=== PATIENT | male | born 1975 | race African-American/Black ===

== ENCOUNTER 2017-09-01 14:53 | Emergency (ER) | payer OTHER ==
[~2017-09-01] VITALS: Ht 180.3 cm; Wt 90.7 kg
[~2017-09-01 14:53] MED LIST: BACTRIM DS TAB1 EACH PO; CIPRO500 M1 PO; CIPRO500 MG PO; CITRATE OF MAG296 ML PO; COLACE100 MG PO; DOXYCYCLINE 10100 M1 PO; DOXYCYCLINE 10100 MG PO; FLAGYL500 MG PO; FLEXERIL PO; GENTAMICIN SU3 MG/ML OPHTHALMIC; HYDROCODONE-AP1 EAC6 PO; HYDROCODONE-APA1 TA1 PO; IMITREX 25 MG T25 M1 PO; IMITREX 50 MG T50 MG PO; LEXAPRO 10 MG T10 M1 PO; MIRALAX17 GM PO; NORCO 5-325 TA1 EACH PO; PEPCID20 MG PO; PREDNISONE 20 M20 M1 PO; SUMATRIPTAN SUC50 MG PO; TRIAMCINOLONE A80 G2 TOP; WELLBUTRIN XL150 MG; ZOFRAN4 MG PO; ZPAK PO
[2017-09-01] MEDS ORDERED: PREDNISONE 20 M20 MG PO (16:17)
[2017-09-01 16:27] VITALS: BP 134/77
== END 2017-09-01 16:28 | disposition home or self-care (01) ==
LOC: M.ERS 14:53
DX: T78.40XA Allergy, unspecified, initial encounter (principal); Z91.041 Radiographic dye allergy status; Z88.5 Allergy status to narcotic agent; Z88.2 Allergy status to sulfonamides; Z90.49 Acquired absence of other specified parts of digestive tract; Y92.89 Other specified places as the place of occurrence of the external cause

== ENCOUNTER 2018-11-29 14:47 | Inpatient (IN) | payer OTHER ==
[~2018-11-29] VITALS: Ht 180.3 cm; Wt 113.4 kg
[~2018-11-29 14:47] MED LIST changes: +PREDNISONE 20 M20 MG PO
[2018-11-29 14:52] VITALS: BP 129/78
[2018-11-29] MEDS ORDERED: XANAX 0.5 MG0.5 MG PO (15:00)
[2018-11-29] MEDS ORDERED: LEXAPRO 10 MG T10 M2 PO (15:01)
[2018-11-29] MEDS ORDERED: ZOFRAN ODT4 MG PO (15:01)
[2018-11-29] MEDS ORDERED: APPLE CIDER VI300 MG PO (15:01)
[2018-11-29] MEDS ORDERED: OMEPRAZOLE40 MG PO (15:02)
[2018-11-29 15:55] LABS: ABSOLUTE BASOPHILS 0.1 thou/uL (0.0-0.2); ABSOLUTE EOSINOPHILS 0.2 thou/uL (0.0-0.7); ABSOLUTE LYMPHOCYTES 1.2 thou/uL (0.8-5.3); ABSOLUTE MONOCYTES 1.1 thou/uL (0.0-1.2); ABSOLUTE NEUTROPHILS 9.5 thou/uL (1.6-8.1); BASOPHILS 0.6 %; EOSINOPHILS 1.5 %; HEMATOCRIT 38.7 % (42.0-52.0); HEMOGLOBIN 13.1 gm/dL (14.0-18.0); LYMPHOCYTES 9.9 %; MCH 32.5 pg (26.0-34.0); MCHC 33.9 g/dL (28.0-37.0); MCV 95.9 fL (80.0-100.0); MONOCYTES 9.1 %; MPV 8.4 fl. (7.2-11.1); NUCLEATED RBCS 0 /100WBC; PLATELET COUNT* 331 thou/uL (150-400); POLYS 78.9 %; RBC 4.03 mil/uL (4.50-6.00); RDW-CV 13.2 % (10.5-14.5)
[2018-11-29 16:04] LABS: APTT 27.3 Seconds (25.0-31.3); PROTIME 10.3 Seconds (9.20-11.50)
[2018-11-29 16:07] LABS: CALCIUM 8.5 mg/dL (8.5-10.1); CREATININE 1.2 mg/dL (0.6-1.3); POTASSIUM 3.7 mmol/L (3.5-5.1)
[2018-11-29 16:12] LABS: ALBUMIN 3.4 g/dL (3.4-5.0); TOTAL BILIRUBIN 0.4 mg/dL (<0.1-1.0)
[2018-11-29 17:03] LABS: URINE BILIRUBIN NEGATIVE (Negative); URINE BLOOD 1+ (Negative); URINE CLARITY CLEAR; URINE COLOR YELLOW; URINE GLUCOSE-RANDOM NEGATIVE (Negative); URINE KETONES NEGATIVE (Negative); URINE LEUKOCYTES NEGATIVE (Negative); URINE NITRITE NEGATIVE (Negative); URINE PROTEIN NEGATIVE (Negative); URINE SPECIFIC GRAVITY 1.015 (1.005-1.030); URINE UROBILINOGEN 0.2 E.U./dl (0.2-1.0)
[2018-11-29 17:05] LABS: BACTERIA None Seen /HPF (None Seen); CASTS None Seen /LPF (None Seen); CRYSTALS None Seen /LPF (None Seen); SQUAMOUS NONE SEEN /LPF (0-3); URINE RBC 0-2 Rare /HPF (0-2); URINE WBC None Seen /HPF (0-5)
[2018-11-29 17:11] LABS: AMP/METHAMP POSITIVE (Negative); BARBITURATES Negative (Negative); BENZODIAZEPINES POSITIVE (Negative); COCAINE Negative (Negative); METHADONE Negative (Negative); OPIATES Negative (Negative); PCP Negative (Negative); THC Negative (Negative)
[2018-11-29 18:20] VITALS: BP 137/85
[2018-11-29 20:00] VITALS: BP 113/56
[2018-11-30 00:08] VITALS: BP 127/70
[2018-11-30 01:30] LABS: HEMATOCRIT 37.1 % (42.0-52.0); HEMOGLOBIN 12.3 gm/dL (14.0-18.0); MCH 31.9 pg (26.0-34.0); MCHC 33.2 g/dL (28.0-37.0); MCV 96.3 fL (80.0-100.0); MPV 8.2 fl. (7.2-11.1); RBC 3.85 mil/uL (4.50-6.00); RDW-CV 13.1 % (10.5-14.5); WBC 16.7 thou/uL (4.0-11.0)
[2018-11-30 01:58] LABS: CALCIUM 8.3 mg/dL (8.5-10.1); CREATININE 1.3 mg/dL (0.6-1.3); MAGNESIUM 1.4 mg/dL (1.8-2.4); POTASSIUM 4.2 mmol/L (3.5-5.1)
[2018-11-30 04:00] VITALS: BP 127/64
[2018-11-30 08:10] VITALS: BP 127/69
--- NOTE | 2018-11-30 10:44 | EKG ---
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[place] : 1975 Requested By: Wisam Fisher Order Number: [id number] MD: Aaron Nunez Measurements Intervals [place] Rate: 120 P: 68 VT: 132 QRS: 63 QRSD: 76 T: 42 QT: 249 QTc: 352 Interpretive Statements Sinus tachycardia Probable left atrial enlargement Baseline wander in lead(s) V5 Compared to ECG 03/18/2016 16:33:41 Sinus rhythm no longer present Electronically Signed On 11-30-2018 10:44:32 CDT by Aaron Nunez [email or web address] <ELECTRONICALLY SIGNED> By: Aaron Nunez MD, [facility] 11/30/18 1044 1605 1605 Aaron Nunez MD, [facility] /EPI
[2018-11-30 12:00] VITALS: BP 120/73
[2018-11-30 16:24] VITALS: BP 101/49
[2018-11-30 20:55] VITALS: BP 131/78
[2018-12-01] VITALS: BP 115/69
[2018-12-01 04:00] VITALS: BP 118/66
[2018-12-01 05:34] LABS: HEMATOCRIT 34.8 % (42.0-52.0); HEMOGLOBIN 11.6 gm/dL (14.0-18.0); MCH 32.3 pg (26.0-34.0); MCHC 33.2 g/dL (28.0-37.0); MCV 97.4 fL (80.0-100.0); MPV 8.7 fl. (7.2-11.1); RBC 3.58 mil/uL (4.50-6.00); RDW-CV 13.6 % (10.5-14.5); WBC 17.2 thou/uL (4.0-11.0)
[2018-12-01 05:43] LABS: CALCIUM 7.6 mg/dL (8.5-10.1); MAGNESIUM 1.3 mg/dL (1.8-2.4); POTASSIUM 3.6 mmol/L (3.5-5.1)
[2018-12-01] MEDS ORDERED: BACTRIM DS TAB1 EACH PO (09:47)
[2018-12-01 10:40] VITALS: BP 113/71
[2018-12-01 12:04] VITALS: BP 113/71
[2018-12-01 12:26] VITALS: BP 113/71
[2018-12-01 12:27] VITALS: BP 113/71
== END 2018-12-01 12:27 | disposition home or self-care (01) | DRG 872 ==
LOC: M.ERS 14:47 → M.TBA-ER 16:51 → M.3W 16:51
PROVIDERS: Physician Assistant; ADMIT Internal Medicine
DX: A41.89 Other specified sepsis (principal); L03.113 Cellulitis of right upper limb; F17.210 Nicotine dependence, cigarettes, uncomplicated; T36.1X5A Adverse effect of cephalosporins and other beta-lactam antibiotics, initial encounter; Z90.49 Acquired absence of other specified parts of digestive tract; Z88.6 Allergy status to analgesic agent; Z91.041 Radiographic dye allergy status; Z91.013 Allergy to seafood; Y92.89 Other specified places as the place of occurrence of the external cause